=== PATIENT | female | born 1980 | race Caucasian/White ===

== ENCOUNTER 2022-03-31 12:08 | Emergency (ER) | payer OTHER ==
[2022-03-31] MEDS ORDERED: Diphtheria,Pertussis(Acell),Tetanus Vaccine 0.5 ML Syringe IM ONE (12:59)
[2022-03-31] MEDS ORDERED: Lidocaine 1% 10 ML MDV INJECT ONE (12:59)
[2022-03-31] MEDS ORDERED: Ibuprofen 800 MG Tab PO ONE (13:53)
== END 2022-03-31 14:17 | disposition home or self-care (01) ==
LOC: JD.ED 12:08
DX: S01.511A Laceration without foreign body of lip, initial encounter (principal); Z88.8 Allergy status to other drugs, medicaments and biological substances; Z23 Encounter for immunization; Y04.0XXA Assault by unarmed brawl or fight, initial encounter
CPT/HCPCS: 12013; 70450; 70450-26; 90471; 90715; 99282; 99284-25; A9270-GY; J3490